=== PATIENT | male | born 1985 | race Caucasian/White ===

== ENCOUNTER → 2017-07-13 | Outpatient (CLI) | payer OTHER ==
[~2017-07-13] VITALS: Ht 177.8 cm; Wt 106.0 kg
[~2017-07-13] MED LIST: FINA1TAB3 PO; RISP2TAB22 PO
[2017-07-13 15:12] VITALS: BP 121/79; PULSE 90; Ht 177.8 cm; Wt 106.0 kg
== END | disposition home or self-care (01) ==
LOC: C.NEUR 14:50
PROVIDERS: ATTEND Internal Medicine Pulmonary Disease
DX: R06.83 Snoring (principal); R06.81 Apnea, not elsewhere classified; Z86.69 Personal history of other diseases of the nervous system and sense organs; R53.83 Other fatigue; Z91.09 Other allergy status, other than to drugs and biological substances

== ENCOUNTER → 2017-11-13 | Outpatient (CLI) | payer OTHER ==
--- NOTE | 2017-11-15 17:20 | POLYSOMNOGRAPH REPORT ---
CLINICAL DATA: A 32-year-old male with BMI of 33.[address] White and myself for a sleep study. He had a previous home sleep apnea test performed through [facility] which was positive for severe sleep apnea. The patient felt it was an inaccurate test and did not believe the results. He was seen in the office and was scheduled for a repeat home sleep apnea test for evaluation. On the evening of 11/13/2017, a home sleep apnea test was performed using a [employer] type 3 monitor. RECORDING RESULTS: Total recording time was 10 hours. Patient's monitoring time and estimated sleep time was 6.1 hours. RESPIRATORY DATA: Very severe sleep apnea was documented. The NERI was 78.6. There were 146 obstructive, 85 mixed, and 102 central apneic episodes. There were 148 hypopneic episodes. The longest respiratory event was 50 seconds. OXIMETRY DATA: Significant nocturnal hypoxemia was seen. Oxygen jaydon was 78%. Mean saturation was 92%. Time below 89% was 51 minutes. HEART RATE DATA: Heart rates ranged from 60-81 beats per minute. SNORING DATA: Loud snoring was present throughout the night. ACID MIXER'S COMMENTS: Snoring was present throughout the test; many of the patient's respiratory events were seen while the patient was supine. IMPRESSION: Very severe sleep apnea/hypopnea with an NERI of 78.6 with nocturnal hypoxemia. RECOMMENDATIONS: The patient will be seen back in followup to discuss options for treatment. It is recommended that he consider a CPAP titration study. ALEJANDRA
== END | disposition home or self-care (01) ==
LOC: C.NEUR 08:58
PROVIDERS: ATTEND Internal Medicine Pulmonary Disease
DX: Z86.69 Personal history of other diseases of the nervous system and sense organs (principal); G47.30 Sleep apnea, unspecified